=== PATIENT | female | born 1990 | race Caucasian/White ===

== ENCOUNTER 2017-03-01 15:26 | Emergency (ER) | payer OTHER ==
[2017-03-01 19:35] VITALS: BP 114/61
--- NOTE | 2017-03-01 19:51 | UC ---
Hand/Wrist HPI - HPI Summary HPI Summary: Patient was running fell and landed on the back of the left hand, pain in the 4th and 5th metacarpal - History Of Current Complaint Chief Complaint: UCUpperExtremity Stated Complaint: LEFT HAND INJURY PT FELL Time Seen by Provider: 03/01/17 19:39 Hx Obtained From: Patient Hx Last Menstrual Period: 02/22/17 ?: No Onset/Duration: Sudden Onset, Lasting Days Severity Initially: Severe Severity Currently: Moderate Character Of Pain: Throbbing, Spasmodic, Stiffness Aggravating Factor(s): Movement Alleviating Factor(s): Rest, Ice Associated Signs And Symptoms: Positive: Swelling - Allergies/Home Medications Allergies/Adverse Reactions: Allergies Allergy/AdvReac Type Severity Reaction Status Date / Time Cefaclor [From Ceclor] Allergy Intermediate Itching Verified 03/01/17 19:35 Home Medications: Home Medications Acetaminophen [Acetaminophen Extra Stren] 500 mg PO PRN 03/01/17 [History] PMH/Surg Hx/FS Hx/Imm Hx Previously Healthy: Yes - Surgical History Surgical History: Yes Surgery Procedure, Year, and Place: PYLORIC STENOSIS - Family History Known Family History: Positive: None Negative: Cardiac Disease, Hypertension - Social History Alcohol Use: Daily Substance Use Type: None Smoking Status (MU): Light Every Day Tobacco Smoker Type: Cigarettes Amount Used/How Often: 3-4 CIG/DAY Length of Time of Smoking/Using Tobacco: since age 19 Household Exposure Type: Cigarettes Review of Systems Constitutional: Negative Skin: Bruising Eyes: Negative ENT: Negative Respiratory: Negative Cardiovascular: Negative Gastrointestinal: Negative Genitourinary: Negative Motor: Negative Neurovascular: Negative Musculoskeletal: Arthralgia, Decreased ROM, Myalgia Neurological: Negative Psychological: Negative Is Patient Immunocompromised?: No All Other Systems Reviewed And Are Negative: Yes Physical Exam Triage Information Reviewed: Yes Appearance: Well-Appearing, Well-Nourished, Pain Distress Vital Signs: Initial Vital Signs Temp 99 F 03/01/17 19:27 Pulse 101 03/01/17 19:27 Resp 14 03/01/17 19:27 BP 114/61 03/01/17 19:27 Pulse Ox 98 03/01/17 19:27 Vital Signs Reviewed: Yes Eye Exam: Normal ENT Exam: Normal Dental Exam: Normal Neck exam: Normal Respiratory Exam: Normal Cardiovascular Exam: Normal Abdominal Exam: Normal Bowel Sounds: Positive: Present Musculoskeletal: Positive: 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, ROM Limited @ - in 4th finger deformity noted, bruising of the finger and MCP joint, Edema @ - in the 4th finger and hand Neurological Exam: Normal Psychological Exam: Normal Skin Exam: Normal Hand/Wrist Course/Dx - Course Course Of Treatment: hx obtained, exam performed ,meds reviewed, xray obtained, pain meds given, finger reduced, post xray obtained, and referred to ortho, splint applied - Differential Dx/Diagnosis Differential Diagnosis/HQI/PQRI: Contusion, Dislocation, Fracture, Sprain, Strain Provider Diagnoses: dislocation of the left index finger PIP Discharge - Discharge Plan Condition: Stable Disposition: HOME Patient Education Materials: Finger Dislocation (ED) Referrals: Moriah Mosley MD [Primary Care Provider] - Additional Instructions: 1. elevated, Ice and keep the finger splinted, follow up with Dr masters in 1-2 days.
[2017-03-01] MEDS ORDERED: Morphine INJ* 10 MG/ML 1 ML CARPUJECT IM ONE (19:58)
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
[2017-03-01] MEDS ORDERED: Morphine VIAL* 10 MG/ML 1 ML VIAL IM ONE (20:04)
--- NOTE | 2017-03-01 20:50 | RAD ---
HISTORY: Post reduction COMPARISONS: March 01, 2017 at 7:49 PM VIEWS: 3, Frontal, lateral, and oblique views of the fourth digit of the left hand FINDINGS: BONE DENSITY: Normal. BONES: There is a small bone fragment along the volar aspect of the head of the proximal falx of the fifth digit, likely an avulsion fracture from a donor site of the volar plate of the base of the middle phalanx of the fifth digit. JOINTS: There is no arthropathy. ALIGNMENT: There has been interval reduction of the fourth PIP dislocation. SOFT TISSUES: There is soft tissue swelling. OTHER FINDINGS: None. IMPRESSION: INTERVAL REDUCTION OF FOURTH PIP DISLOCATION. THERE IS A SMALL BONE FRAGMENT ALONG THE VOLAR ASPECT OF THE PIP JOINT, LIKELY AN AVULSION FRACTURE FROM THE BASE OF THE MIDDLE PHALANX
== END 2017-03-01 20:51 | disposition home or self-care (01) ==
LOC: UCCORT 15:26
DX: S63.281A Dislocation of proximal interphalangeal joint of left index finger, initial encounter (principal); W18.30XA Fall on same level, unspecified, initial encounter; Y93.02 Activity, running; Y92.9 Unspecified place or not applicable; Z88.1 Allergy status to other antibiotic agents; F17.210 Nicotine dependence, cigarettes, uncomplicated
CPT/HCPCS: 26770; 73140; 96372; 99211; G0463; J2270

== ENCOUNTER 2017-03-09 15:07 | Day surgery (SDC) | payer OTHER ==
[2017-03-09] MEDS ORDERED: fentaNYL* 50 MCG/ML 2 ML VIAL (100 MCG VIAL) ONE (15:14)
[2017-03-09] MEDS ORDERED: Midazolam* 1 MG/ML 2 ML VIAL (2 MG) ONE (15:14)
[2017-03-09] MEDS ORDERED: Propofol* 10 MG/ML 20 ML BTL IV PUSH ONE ×2 (16:43→17:41)
[2017-03-09] MEDS ORDERED: Naloxone* 0.4 MG/ML 1 ML VIAL IV PRN (17:25)
[2017-03-09] MEDS ORDERED: HYDROmorphone INJ* 1 MG/ML CARPUJECT SYRINGE IV PRN (17:25)
[2017-03-09] MEDS ORDERED: Ondansetron INJ* 2 MG/ML VIAL IV PRN (17:25)
[2017-03-09] MEDS ORDERED: oxyCODONE/Acetamin 5/325 MG* TAB PO PRN (17:25)
[2017-03-09 19:21] VITALS: BP 104/62
--- NOTE | 2017-03-10 08:48 | RAD ---
CPT II Codes: 6045F INDICATION: Avulsion fracture at the proximal interphalangeal joint of the left ring finger TECHNIQUE: Intraoperative fluoroscopy was provided during ORIF. FINDINGS: 3 spot films depict lateral view fluoroscopic images of the left ring finger with a surgical tack overlying the anterior proximal corner of the middle phalanx. Fluoroscopy time: 23 seconds IMPRESSION: As above.
--- NOTE | 2017-03-10 16:32 | OP ---
DATE OF OPERATION: 03/09/17 - [facility] DATE OF : 88 SURGEON: Kendall Murphy MD. NON GARMENT SEWING MACHINE OPERATOR: BECCA Calles. An pharmacy affairs assistant was needed to aid in positioning of the arm and retraction. ANESTHESIOLOGIST: Dr. Bryant. ANESTHESIA: Local MAC. PRE-OP DIAGNOSIS: Left ring finger displaced proximal interphalangeal joint fracture, dislocation. POST-OP DIAGNOSIS: Left ring finger displaced proximal interphalangeal joint fracture, dislocation. OPERATIVE PROCEDURE: Open repair of left ring finger, displaced proximal to phalangeal joint fracture, intraarticular fracture dislocation. INDICATIONS: Leilani had a dorsal fracture dislocation of the ring finger PIP joint. It was very displaced. I had talked to her about closed treatment versus going ahead and then trying to open reduce the fragment and flip the volar plate back into place. I thought that given the degree of displacement, I thought the risk of a swan neck deformity was quite large. Given that the volar plate looked like it was inverted back on itself, based on the preoperative imaging. She certainly understands the risks of stiffness in the joint and risk of prolonged swelling. She wanted to proceed. ESTIMATED BLOOD LOSS: 2 mL. COMPLICATIONS: None. FINDINGS: As expected. The volar plate was indeed flipped back on to itself. DESCRIPTION OF PROCEDURE: Leilani was seen in the preoperative holding area. The correct site, side, and procedure were identified. We came back to the operating room and the arm was prepped and draped in the usual fashion. A time- out was performed. I performed a digital block with 0.25% plain Marcaine. I then made an incision over the volar aspect of the finger that was brought longitudinally across the PIP joint along the ulnar mid axial line. The flap was retracted radially. This was raised right off the tendon sheath. I then opened the A3 jami longitudinally on its ulnar margin. I did this just enough to get a Ragnell retractor under both tendons and retract them. I irrigated out the fracture hematoma and debrided back the soft tissue with pickups. The volar plate was seen; it was indeed inverted, and the fracture fragment was abutting the distal aspect of the proximal phalanx. I went ahead and reduced the volar plate. I then placed 1 micro Mitek suture anchor, right in the middle of the fracture bed. I placed 1 horizontal mattress suture into the volar plate, holding the fracture fragments more apposed. Certainly they were much more apposed and in a nice position. At this point, with the suture fixation intact everything was looking good. I extended the finger and came out to full extension and flexed it down. The volar plate stayed in a very nice position. I therefore irrigated out the wound. The skin was closed with 4-0 nylon suture. The wound was dressed with Xeroform, 1-inch Nadir and Alumafoam clamshell splint was placed, holding the PIP joint in full extension. This was secured with Coban and some tape. The tourniquet was deflated and she was taken to the recovery room in stable condition. [id number]/CPS #: [id number] ABIMAEL
== END 2017-03-09 18:50 | disposition home or self-care (01) ==
LOC: OR 15:07
PROVIDERS: ATTEND Orthopaedic Surgery Hand Surgery
DX: S62.615A Displaced fracture of proximal phalanx of left ring finger, initial encounter for closed fracture (principal); F17.210 Nicotine dependence, cigarettes, uncomplicated; W18.39XA Other fall on same level, initial encounter; Y92.410 Unspecified street and highway as the place of occurrence of the external cause; K21.9 Gastro-esophageal reflux disease without esophagitis; F41.8 Other specified anxiety disorders
CPT/HCPCS: 76000; 81025; J2250; J2704; J3010

== ENCOUNTER 2017-04-04 21:27 | Emergency (ER) | payer SELFPAY ==
[2017-04-04] MEDS ORDERED: Amoxicillin/Clavulanate TAB* 875 MG PO ONE ×2 (21:39→21:40)
[2017-04-04 21:46] VITALS: BP 126/78
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
== END 2017-04-04 22:00 | disposition home or self-care (01) ==
LOC: UCEAST 21:27
DX: S02.92XD Unspecified fracture of facial bones, subsequent encounter for fracture with routine healing (principal); V89.2XXD Person injured in unspecified motor-vehicle accident, traffic, subsequent encounter; R20.0 Anesthesia of skin; Z88.1 Allergy status to other antibiotic agents; F17.210 Nicotine dependence, cigarettes, uncomplicated
CPT/HCPCS: 99202; A9270-GY; G0463

== ENCOUNTER 2017-05-30 15:58 | Emergency (ER) | payer OTHER ==
[2017-05-30] MEDS ORDERED: LORazepam INJ* 2 MG/ML 1 ML VIAL IV ONE (16:26)
[2017-05-30 16:50] LABS: ABS Basophils 0.1 10^3/ul (0-0.2); ABS Eosinophils 0.6 10^3/ul (0-0.6); ABS Lymphocytes 1.1 10^3/ul (1.0-4.8); ABS Monocytes 0.7 10^3/ul (0-0.8); ABS Neutrophils 7.3 10^3/ul (1.5-7.7); ABS Nucleated RBC 0 10^3/ul; Eosinophil % 6.3 % (0-6); Hematocrit 45 % (35-47); Hemoglobin 15.4 g/dl (12.0-16.0); Lymphocyte % 10.8 % (25-47); Mean Corpuscular HGB Conc 34 g/dl (31-36); Mean Corpuscular Hemoglobin 32 pg (27-31); Mean Corpuscular Volume 92 fL (80-97); Mean Platelet Volume 8.4 um3 (7.4-10.4); Nucleated Red Blood Cells % 0; Platelet Count 219 10^3/ul (150-450); Red Cell Distribution Width 13 % (10.5-15); White Blood Count 9.7 10^3/ul (3.5-10.8)
[2017-05-30 17:07] LABS: EGFR Non-African American 94.1 (>60)
--- NOTE | 2017-05-30 17:08 | RAD ---
Indication: Headaches. CT of the brain was performed without IV contrast. Comparison is made with previous exam dated October 05, 2006. Ventricular structures are midline. No midline shift is noted. The extra-axial spaces are unremarkable. There is no evidence of mass or hemorrhage. No other high or low density lesions are identified. Mastoid air cells and paranasal sinuses are clear. IMPRESSION: No intracranial mass or hemorrhage is noted.
[2017-05-30 19:29] LABS: Urine Appearance Clear; Urine Blood Negative (Negative); Urine Color Yellow; Urine Ketones Negative (Negative); Urine Protein Negative (Negative); Urine Specific Gravity 1.014 (1.010-1.030); Urine Urobilinogen Negative (Negative)
[2017-05-30 19:45] VITALS: BP 00/00
--- NOTE | 2017-05-30 20:04 | ED ---
Arturo Mchugh Thomas, scribed for Andre Germain MD on 05/30/17 at 1652 . Headache - HPI Summary HPI Summary: The patient is a 26 year old female presenting with a sudden-onset severe headache that began two minutes after injecting methamphetamine at about 15:50. She complains of bilateral hand numbness, lip tingling, and mouth numbness. She is tearful. This was her first time injecting meth, although she admits to injecting heroin previously. - History Of Current Complaint Chief Complaint: EDSubstanceAbuse Stated Complaint: DRUG INTAKE Time Seen by Provider: 05/30/17 16:18 Hx Obtained From: Patient Hx Last Menstrual Period: 02/22/17 Onset/Duration: Sudden Onset, Started minutes ago, Still Present Currently Pain Is: Severe Timing: Constant Aggravating Factor: Other - Methanmphetamine Allevating Factors: Nothing Associated Signs And Symptoms: Other (Noted In Comments) - Bilateral hand and mouth numbness, lip tingling - Allergies/Home Medications Allergies/Adverse Reactions: Allergies Allergy/AdvReac Type Severity Reaction Status Date / Time cefaclor [From Ceclor] Allergy Itching Verified 05/30/17 16:18 PMH/Surg Hx/FS Hx/Imm Hx Cardiovascular History: Denies: Hx Congestive Heart Failure Opthamlomology History: Denies: Hx Legally Blind Psychiatric History: Reports: Hx Substance Abuse - Surgical History Surgery Procedure, Year, and Place: PYLORIC STENOSIS Infectious Disease History: Yes Infectious Disease History: Denies: Traveled Outside the [place] in Last 30 Days - Family History Known Family History: Negative: Cardiac Disease, Hypertension - Social History Alcohol Use: Daily Substance Use Type: Reports: Heroin, Other Substance Use Comment - Amount & Last Used: methamphetamines Smoking Status (MU): Light Every Day Tobacco Smoker Type: Cigarettes Amount Used/How Often: 3-4 CIG/DAY Length of Time of Smoking/Using Tobacco: since age 19 Review of Systems Negative: Fever Neurological: Other - Lip tingling Positive: Headache, Numbness - bilateral hands, mouth All Other Systems Reviewed And Are Negative: Yes Physical Exam - Summary Physical Exam Summary: Appearance: The patient is well-nourished in no acute distress and in no acute pain. Skin: The skin is warm and dry and skin color reflects adequate perfusion. She has multiple clean injection wiseman on her left volar forearm. HEENT: The head is normocephalic and atraumatic. The pupils are equal and reactive. The conjunctivae are clear and without drainage. The fundi are crisp. Nares are patent and without drainage. Mouth reveals moist mucous membranes and the throat is without erythema and exudate. The external ears are intact. The ear canals are patent and without drainage. The tympanic membranes are intact. Neck: the neck is supple with full range of motion and non-tender. There are no carotid bruits. There is no neck vein distension. Respiratory: Chest is non-tender. Lungs are clear to auscultation and breath sounds are symmetrical and equal. Cardiovascular: Heart is regular rate and rhythm. There is no murmur or rub auscultated. There is no peripheral edema and pulses are symmetrical and equal. Abdomen: The abdomen is soft and non-tender. There are normal bowel sounds heard in all four quadrants and there is no organomegaly palpated. Musculoskeletal: There is no back tenderness noted. Extremities are non-tender with full range of motion. There is good capillary refill. There is no peripheral edema or calf tenderness elicited. Neurological: Patient is alert and oriented to person, place and time. The patient has symmetrical motor strength in all four extremities. Cranial nerves are grossly intact. Deep tendon reflexes are symmetrical and equal in all four extremities. She is not hyperreflexic. She has no meningeal signs. Psychiatric: The patient has an appropriate affect and does not exhibit any anxiety or depression. Triage Information Reviewed: Yes Vital Signs On Initial Exam: Initial Vitals Temp Pulse Resp BP Pulse Ox 97.3 F 135 22 154/119 100 05/30/17 16:04 05/30/17 16:04 05/30/17 16:04 05/30/17 16:04 05/30/17 16:04 Vital Signs Reviewed: Yes Diagnostics - Vital Signs Vital Signs Temp Pulse Resp BP Pulse Ox 05/30/17 16:39 18 05/30/17 16:25 100 05/30/17 16:23 86 21 141/81 100 05/30/17 16:15 79 21 161/89 100 05/30/17 16:14 72 27 99 05/30/17 16:04 97.3 F 135 22 154/119 100 - Laboratory Lab Results: Lab Results 04/21/18 04/21/18 04/21/18 Range/Units 16:40 16:40 16:40 WBC 9.7 (3.5-10.8) 10^3/ul RBC 4.90 (4.0-5.4) 10^6/ul Hgb 15.4 (12.0-16.0) g/dl Hct 45 (35-47) % MCV 92 (80-97) fL MCH 32 H (27-31) pg MCHC 34 (31-36) g/dl RDW 13 (10.5-15) % Plt Count 219 (150-450) 10^3/ul MPV 8.4 (7.4-10.4) um3 Neut % (Auto) 75.3 (38-83) % Lymph % (Auto) 10.8 L (25-47) % Collier % (Auto) 7.0 (0-7) % Eos % (Auto) 6.3 H (0-6) % Baso % (Auto) 0.6 (0-2) % Absolute Neuts (auto) 7.3 (1.5-7.7) 10^3/ul Absolute Lymphs (auto) 1.1 (1.0-4.8) 10^3/ul Absolute Monos (auto) 0.7 (0-0.8) 10^3/ul Absolute Eos (auto) 0.6 (0-0.6) 10^3/ul Absolute Basos (auto) 0.1 (0-0.2) 10^3/ul Absolute Nucleated RBC 0 10^3/ul Nucleated RBC % 0 Sodium 141 (139-145) mmol/L Potassium 3.3 L (3.5-5.0) mmol/L Chloride 104 (101-111) mmol/L Carbon Dioxide 23 (22-32) mmol/L Anion Gap 14 H (2-11) mmol/L BUN 11 (6-24) mg/dL Creatinine 0.74 (0.51-0.95) mg/dL Est GFR ( Amer) 121.1 (>60) Est GFR (Non-Af Amer) 94.1 (>60) BUN/Creatinine Ratio 14.9 (8-20) Glucose 123 H (70-100) mg/dL Lactic Acid 1.4 (0.5-2.0) mmol/L Calcium 10.0 (8.6-10.3) mg/dL Total Bilirubin 0.60 (0.2-1.0) mg/dL AST 17 (13-39) U/L ALT 11 (7-52) U/L Alkaline Phosphatase 72 (34-104) U/L Total Protein 7.5 (6.4-8.9) g/dL Albumin 4.4 (3.2-5.2) g/dL Globulin 3.1 (2-4) g/dL Albumin/Globulin Ratio 1.4 (1-3) TSH 1.07 (0.34-5.60) mcIU/mL Beta HCG, Quant < 0.60 mIU/mL Urine Color Urine Appearance Urine pH (5-9) Ur Specific Midland (1.010-1.030) Urine Protein (Negative) Urine Ketones (Negative) Urine Blood (Negative) Urine Nitrate (Negative) Urine Bilirubin (Negative) Urine Urobilinogen (Negative) Ur Leukocyte Esterase (Negative) Urine Glucose (Negative) Salicylates < 2.50 (<30) mg/dL Urine Opiates Screen (None Detect) Acetaminophen < 15 mcg/mL Ur Barbiturates Screen (None Detect) Ur Phencyclidine Scrn (None Detect) Ur Amphetamines Screen (None Detect) U Benzodiazepines Scrn (None Detect) Urine Cocaine Screen (None Detect) U Cannabinoids Screen (None Detect) Serum Alcohol < 10 (<10) mg/dL 05/30/17 05/30/17 Range/Units 19:01 19:10 WBC (3.5-10.8) 10^3/ul RBC (4.0-5.4) 10^6/ul Hgb (12.0-16.0) g/dl Hct (35-47) % MCV (80-97) fL MCH (27-31) pg MCHC (31-36) g/dl RDW (10.5-15) % Plt Count (150-450) 10^3/ul MPV (7.4-10.4) um3 Neut % (Auto) (38-83) % Lymph % (Auto) (25-47) % Collier % (Auto) (0-7) % Eos % (Auto) (0-6) % Baso % (Auto) (0-2) % Absolute Neuts (auto) (1.5-7.7) 10^3/ul Absolute Lymphs (auto) (1.0-4.8) 10^3/ul Absolute Monos (auto) (0-0.8) 10^3/ul Absolute Eos (auto) (0-0.6) 10^3/ul Absolute Basos (auto) (0-0.2) 10^3/ul Absolute Nucleated RBC 10^3/ul Nucleated RBC % Sodium (139-145) mmol/L Potassium (3.5-5.0) mmol/L Chloride (101-111) mmol/L Carbon Dioxide (22-32) mmol/L Anion Gap (2-11) mmol/L BUN (6-24) mg/dL Creatinine (0.51-0.95) mg/dL Est GFR ( Amer) (>60) Est GFR (Non-Af Amer) (>60) BUN/Creatinine Ratio (8-20) Glucose (70-100) mg/dL Lactic Acid (0.5-2.0) mmol/L Calcium (8.6-10.3) mg/dL Total Bilirubin (0.2-1.0) mg/dL AST (13-39) U/L ALT (7-52) U/L Alkaline Phosphatase (34-104) U/L Total Protein (6.4-8.9) g/dL Albumin (3.2-5.2) g/dL Globulin (2-4) g/dL Albumin/Globulin Ratio (1-3) TSH (0.34-5.60) mcIU/mL Beta HCG, Quant mIU/mL Urine Color Yellow Urine Appearance Clear Urine pH 7.0 (5-9) Ur Specific [place] 1.014 (1.010-1.030) Urine Protein Negative (Negative) Urine Ketones Negative (Negative) Urine Blood Negative (Negative) Urine Nitrate Negative (Negative) Urine Bilirubin Negative (Negative) Urine Urobilinogen Negative (Negative) Ur Leukocyte Esterase Negative (Negative) Urine Glucose Negative (Negative) Salicylates (<30) mg/dL Urine Opiates Screen Presumptive positive A (None Detect) Acetaminophen mcg/mL Ur Barbiturates Screen None detected (None Detect) Ur Phencyclidine Scrn None detected (None Detect) Ur Amphetamines Screen Presumptive positive A (None Detect) U Benzodiazepines Scrn None detected (None Detect) Urine Cocaine Screen Presumptive positive A (None Detect) U Cannabinoids Screen None detected (None Detect) Serum Alcohol (<10) mg/dL Result Diagrams: 05/30/17 16:40 05/30/17 16:40 Lab Statement: Any lab studies that have been ordered have been reviewed, and results considered in the medical decision making process. - CT CT Brain CT Interpretation: No Acute Changes - Impression: No intracranial mass or hemorrhage is noted. Dr. Germain has reviewed this report. CT Interpretation Completed By: Radiologist - EKG 16:32 Cardiac Rate: NL EKG Rhythm: Sinus Rhythm - at 69 BPM EKG Interpretation: Possible RVH. Re-Evaluation - Re-Evaluation First Eval Re-Evaluation Time: 17:43 Change: Improved Comment: Her headache is much improved. Second Eval Re-Evaluation Time: 19:27 Comment: Patient will be discharged. Follow up at [facility] was discussed. Headache Course/Dx - Course Course Of Treatment: Ms. Tamayo improved and her PHAM resolved after some time and some Ativan. She is a polysubstance user and is most concerned about using heroin which she has used for about a year and by injection for about a month. She has an appointment at [facility] for Thursday but has missed 4 appointments already. I encouraged her to keep that appointment and she indicated that she would. - Diagnoses Provider Diagnoses: Overdose Discharge - Sign-Out/Discharge Documenting (check all that apply): Discharge - Discharge Plan Condition: Stable Disposition: HOME Prescriptions: Buprenorphine HCl/Naloxone HCl [Suboxone 8 mg-2 mg Sl Film] 1 each SL QAM #4 film MDD 1 Patient Education Materials: Narcotic Abuse (ED), Methamphetamine Abuse (ED) Referrals: [facility],. [Z.BUSINESS, APPLICATION, OTHER] - 06/03/17 Additional Instructions: Follow up at [facility] on 06/03/17 at 10:40am. Return to the emergency department for new or worsening symptoms. - Billing Disposition and Condition Condition: STABLE Disposition: HOME The documentation as recorded by the Arturo martinez Thomas accurately reflects the service I personally performed and the decisions made by me, Andre Germain MD.
== END 2017-05-30 19:48 | disposition home or self-care (01) ==
LOC: ED 15:58
DX: T43.621A Poisoning by amphetamines, accidental (unintentional), initial encounter (principal); R51 Headache; R20.0 Anesthesia of skin; R20.2 Paresthesia of skin; Y92.9 Unspecified place or not applicable; Z32.02 Encounter for pregnancy test, result negative; Z88.1 Allergy status to other antibiotic agents; F17.210 Nicotine dependence, cigarettes, uncomplicated
CPT/HCPCS: 36415; 70450; 80053; 80307; 80320; 80329; 81003; 83605; 84443; 84702; 85025; 93005; 96374; 99284; G0480; J2060

== ENCOUNTER 2017-11-17 19:08 | Emergency (ER) | payer OTHER ==
[2017-11-17] MEDS ORDERED: NS 0.9% 1000 ML* 1,000 ML IV ONE ×2 (19:23→20:26)
--- NOTE | 2017-11-17 19:23 | ED ---
Substance Abuse/Use - HPI Summary HPI Summary: A 27 y/o female BIBA and police agitated in handcuffs presents to [facility] with AMS , possible OD earlier today. The pt has a Hx of heroin and methamphetaminesabuse. EMS was called by a friend. She is awake but fidgets in her bed. She was given Haldol and Ativan. She is tachycardic on the heart monitor. After sedation the patient is responsive to touch. Patient is a level 5 caveat due to her AMS. - History Of Current Complaint Stated Complaint: POSS OVERDOSE Hx Obtained From: Patient, EMS Hx From Patient Unobtainable Due To: Altered Mental Status Hx Last Menstrual Period: 02/22/17 Ingestion History: Type/Name Of Drug - Heroin Severity Initially: Moderate Severity Currently: Moderate Aggravating Factor(s): Other - drug use - Allergies/Home Medications Allergies/Adverse Reactions: Allergies Allergy/AdvReac Type Severity Reaction Status Date / Time cefaclor [From Ceclor] Allergy Itching Verified 05/30/17 16:18 PMH/Surg Hx/FS Hx/Imm Hx Cardiovascular History: Denies: Hx Congestive Heart Failure Sensory History: Denies: Hx Legally Blind Opthamlomology History: Denies: Hx Legally Blind Psychiatric History: Reports: Hx Substance Abuse - Surgical History Surgery Procedure, Year, and Place: PYLORIC STENOSIS - Family History Known Family History: Negative: Cardiac Disease, Hypertension - Social History Alcohol Use: Daily Substance Use Type: Reports: Heroin, Other Substance Use Comment - Amount & Last Used: methamphetamines Smoking Status (MU): Light Every Day Tobacco Smoker Type: Cigarettes Amount Used/How Often: 3-4 CIG/DAY Length of Time of Smoking/Using Tobacco: since age 19 Review of Systems Negative: Fever All Other Systems Reviewed And Are Negative: No Physical Exam - Summary Physical Exam Summary: VITAL SIGNS: Reviewed. GENERAL: Patient is a well-developed and nourished FEMALE who is lying comfortable in the stretcher. Patient is not in any acute respiratory distress. HEAD AND FACE: No signs of trauma. No ecchymosis, hematomas or skull depressions. No sinus tenderness. EYES: PERRLA, EOMI x 2, No injected conjunctiva, no nystagmus. EARS: Hearing grossly intact. Ear canals and tympanic membranes are within normal limits. MOUTH: Oropharynx within normal limits. NECK: Supple, trachea is midline, no adenopathy, no JVD, no carotid bruit, no c- spine tenderness, neck with full ROM. CHEST: Symmetric, no tenderness at palpation LUNGS: Clear to auscultation bilaterally. No wheezing or crackles. CVS: Regular rate and rhythm, S1 and S2 present, no murmurs or gallops appreciated. ABDOMEN: Soft, non-tender. No signs of distention. No rebound no guarding, and no masses palpated. Bowel sounds are normal. EXTREMITIES: FROM in all major joints, no edema, no cyanosis or clubbing. NEURO: Alert and oriented x 3. No acute neurological deficits. Speech is normal and follows commands. SKIN: Dry and warm Psych: Agitated, handcuffed and talking nonsense. Triage Information Reviewed: Yes Vital Signs Reviewed: Yes Diagnostics - Laboratory Result Diagrams: 11/17/17 20:04 11/17/17 20:04 Lab Statement: Any lab studies that have been ordered have been reviewed, and results considered in the medical decision making process. - EKG 19:45 Cardiac Rate: Tachycardia - 144 bpm EKG Rhythm: Sinus Tachycardia ST Segment: Normal EKG Interpretation: Normal axis. Normal interval. No ischemic changes Re-Evaluation - Re-Evaluation First Eval Re-Evaluation Time: 02:00 Change: Improved Comment: Alert and oriented. Feeling OK, ready to go home. Course/Dx - Course Course Of Treatment: A 27 y/o female BIBA and police agitated in handcuffs presents to [facility] with AMS, possible OD earlier today. The pt has a Hx of heroin and methamphetaminesabuse. EMS was called by a friend. She is awake but fidgets in her bed. She was given Haldol and Ativan. She is tachycardic on the heart monitor. After sedation the patient is responsive to touch. Patient is a level 5 caveat due to her AMS. She was tachycardic at 144 bpm. Final diagnosis is substance abuse. She will be discharged home. Patient is agreeable with this plan. - Diagnoses Provider Diagnoses: Substance abuse Discharge - Sign-Out/Discharge Documenting (check all that apply): Patient Departure - DC - Discharge Plan Condition: Stable Disposition: HOME Patient Education Materials: Narcotic Abuse (ED) Referrals: Romina Villalba NP [Primary Care Provider] - (2-3 days) Additional Instructions: RETURN TO THE EMERGENCY DEPARTMENT FOR CHANGING OR WORSENING SYMPTOMS. FOLLOW UP WITH PCP IN 1-2 DAYS. - Attestation Statements Document Initiated by Scribe: Yes Documenting Scribe: Oliverio Romero Provider For Whom Scribe is Documenting (Include Credential): Cody Lyle MD Scribe Attestation: IOliverio, scribed for Cody Lyle MD on 11/18/17 at 0323.
[2017-11-17] MEDS ORDERED: LORazepam INJ* 2 MG/ML 1 ML VIAL IM ONE (19:25)
[2017-11-17] MEDS ORDERED: Haloperidol INJ IV/IM* 5 MG/ML AMP IM ONE (19:25)
[2017-11-17 20:15] LABS: ABS Basophils 0.1 10^3/ul (0-0.2); ABS Eosinophils 0.1 10^3/ul (0-0.6); ABS Lymphocytes 1.2 10^3/ul (1.0-4.8); ABS Monocytes 0.6 10^3/ul (0-0.8); ABS Neutrophils 16.7 10^3/ul (1.5-7.7); ABS Nucleated RBC 0 10^3/ul; Eosinophil % 0.6 % (0-6); Hematocrit 41 % (35-47); Hemoglobin 14.1 g/dl (12.0-16.0); Lymphocyte % 6.2 % (25-47); Mean Corpuscular HGB Conc 35 g/dl (31-36); Mean Corpuscular Hemoglobin 31 pg (27-31); Mean Corpuscular Volume 90 fL (80-97); Mean Platelet Volume 7.5 um3 (7.4-10.4); Nucleated Red Blood Cells % 0.1; Platelet Count 369 10^3/ul (150-450); Red Blood Count 4.55 10^6/ul (4.00-5.40); Red Cell Distribution Width 14 % (10.5-15); White Blood Count 18.7 10^3/ul (3.5-10.8)
[2017-11-18 01:21] LABS: Urine Appearance Cloudy; Urine Blood Negative (Negative); Urine Color Yellow; Urine Ketones Negative (Negative); Urine Protein Negative (Negative); Urine Red Blood Cell Trace(0-2/hpf) (Absent); Urine Specific Gravity 1.013 (1.010-1.030); Urine Urobilinogen Negative (Negative); Urine White Blood Cell Trace(0-5/hpf) (Absent)
[2017-11-18 03:03] VITALS: BP 107/71
== END 2017-11-18 03:11 | disposition home or self-care (01) ==
LOC: ED 19:08
DX: F19.10 Other psychoactive substance abuse, uncomplicated (principal); R00.0 Tachycardia, unspecified; F17.210 Nicotine dependence, cigarettes, uncomplicated; Z88.3 Allergy status to other anti-infective agents
CPT/HCPCS: 36415; 80053; 80307; 80320; 80329; 81003; 81015; 82550; 84443; 84702; 85025; 87077; 87086; 87186; 93005; 99284; G0480; J1630; J2060

== ENCOUNTER 2017-12-01 22:54 | Emergency (ER) | payer OTHER ==
[2017-12-01] MEDS ORDERED: KETAMINE HCL* 50 MG/ML 10 ML VIAL ONE (23:00)
[2017-12-01] MEDS ORDERED: KETAMINE HCL* 50 MG/ML 10 ML VIAL IM ONE (23:04)
[2017-12-01] MEDS ORDERED: NS 0.9% 1000 ML* 2,000 ML IV ONE (23:04)
--- NOTE | 2017-12-01 23:04 | ED ---
Altered Mental Status - History Of Current Complaint Stated Complaint: 22.09 Hx Last Menstrual Period: 02/22/17 - Allergies/Home Medications Allergies/Adverse Reactions: Allergies Allergy/AdvReac Type Severity Reaction Status Date / Time cefaclor [From Ceclor] Allergy Itching Verified 05/30/17 16:18 PMH/Surg Hx/FS Hx/Imm Hx Cardiovascular History: Denies: Hx Congestive Heart Failure Sensory History: Denies: Hx Legally Blind Opthamlomology History: Denies: Hx Legally Blind Psychiatric History: Reports: Hx Substance Abuse - Surgical History Surgery Procedure, Year, and Place: PYLORIC STENOSIS - Family History Known Family History: Positive: None Negative: Cardiac Disease, Hypertension - Social History Alcohol Use: Daily Substance Use Type: Reports: Heroin, Other Substance Use Comment - Amount & Last Used: methamphetamines Smoking Status (MU): Light Every Day Tobacco Smoker Type: Cigarettes Amount Used/How Often: 3-4 CIG/DAY Length of Time of Smoking/Using Tobacco: since age 19 Discharge - Discharge Plan Referrals: Romina Villalba NP [Primary Care Provider] - - Attestation Statements Document Initiated by Scribe: Yes Documenting Scribe: Piper Saez Provider For Whom Scribe is Documenting (Include Credential): Dr. Andre Guerrier MD Scribe Attestation: Piper Mchugh scribed for Dr. Andre Guerrier MD on 12/01/17 at 2304.
[2017-12-01] MEDS ORDERED: Haloperidol INJ IV/IM* 5 MG/ML AMP IM ONE (23:45)
[2017-12-02 00:50] LABS: ABS Basophils 0 10^3/ul (0-0.2); ABS Eosinophils 0 10^3/ul (0-0.6); ABS Lymphocytes 1.1 10^3/ul (1.0-4.8); ABS Monocytes 0.7 10^3/ul (0-0.8); ABS Neutrophils 7.5 10^3/ul (1.5-7.7); ABS Nucleated RBC 0 10^3/ul; Eosinophil % 0.5 % (0-6); Hematocrit 44 % (35-47); Hemoglobin 15.1 g/dl (12.0-16.0); Lymphocyte % 11.6 % (25-47); Mean Corpuscular HGB Conc 35 g/dl (31-36); Mean Corpuscular Hemoglobin 31 pg (27-31); Mean Corpuscular Volume 90 fL (80-97); Mean Platelet Volume 8.3 um3 (7.4-10.4); Nucleated Red Blood Cells % 0; Platelet Count 233 10^3/ul (150-450); Red Blood Count 4.84 10^6/ul (4.00-5.40); Red Cell Distribution Width 15 % (10.5-15); White Blood Count 9.4 10^3/ul (3.5-10.8)
[2017-12-02 01:07] LABS: EGFR Non-African American 93.5 (>60)
--- NOTE | 2017-12-02 02:53 | ED ---
Substance Abuse/Use - HPI Summary HPI Summary: Level 5 caveat : Unable to obtain complete HPI due to AMS The pt is a 27 y/o female accompanied by police BIBA to [facility] c/o of altered mental status since 2209hrs on 12/01/2017. As per EMS, the pt was found with an unknown substance. She arrives in handcuffs and is not communicative. - History Of Current Complaint Chief Complaint: EDSubstanceAbuse Stated Complaint: 22.09 Time Seen by Provider: 12/01/17 23:03 Hx Obtained From: Patient, EMS, Other: - [place] [employer] Hx From Patient Unobtainable Due To: Altered Mental Status Hx Last Menstrual Period: 02/22/17 Associated Signs And Symptoms: Altered Mental Status - Allergies/Home Medications Allergies/Adverse Reactions: Allergies Allergy/AdvReac Type Severity Reaction Status Date / Time cefaclor [From Ceclor] Allergy Itching Verified 05/30/17 16:18 PMH/Surg Hx/FS Hx/Imm Hx Previously Healthy: No - Level 5 caveat : Unable to obtain complete PMHx due to AMS Cardiovascular History: Denies: Hx Congestive Heart Failure Sensory History: Denies: Hx Legally Blind, Hx Deafness Opthamlomology History: Denies: Hx Legally Blind Psychiatric History: Reports: Hx Substance Abuse - Cancer History Cancer Type, Location and Year: None reported - Surgical History Surgery Procedure, Year, and Place: PYLORIC STENOSIS Infectious Disease History: No Infectious Disease History: Denies: Traveled Outside the [place] in Last 30 Days - Family History Known Family History: Negative: Cardiac Disease, Hypertension - Social History Occupation: Student Alcohol Use: Daily Substance Use Type: Reports: Heroin, Other Substance Use Comment - Amount & Last Used: methamphetamines Smoking Status (MU): Light Every Day Tobacco Smoker Type: Cigarettes Amount Used/How Often: 3-4 CIG/DAY Length of Time of Smoking/Using Tobacco: since age 19 Review of Systems - ROS Summary Review of Systems Summary: Level 5 caveat : Unable to obtain complete ROS due to AMS Constitutional: Other - Positive: AMS Negative: Fever All Other Systems Reviewed And Are Negative: No Physical Exam - Summary Physical Exam Summary: Level 5 caveat : Unable to obtain complete PE due to AMS Appearance: The patient makes eye contact but is not verbal; She is fidgety with smirking present Skin: Warm, dry, no obvious rash Eyes: sclera anicteric, no conjunctival pallor; Pupils are normal and reactive ; Not pinpoint ENT: mucous membranes moist, pharynx appears normal Neck: Supple, nontender Respiratory: Clear to auscultation, no signs of respiratory distress Cardiovascular: Normal S1, S2. No murmurs. Normal distal pulses in tibial and radial bilaterally. Abdomen: Soft, nontender, normal active bowel sounds present Musculoskeletal: Normal, Strength/ROM Intact Neurological: A&Ox3, awake and alert, mentation is normal, speech is fluent and appropriate Psychiatric: affect is normal, does not appear anxious or depressed Triage Information Reviewed: Yes Vital Signs On Initial Exam: Initial Vitals BP 146/87 12/01/17 23:09 Vital Signs Reviewed: Yes Completion Of Physical Exam Limited Due To: Altered Mental Status Diagnostics - Vital Signs Vital Signs Temp Pulse Resp BP Pulse Ox 12/02/17 02:10 108 23 113/78 98 12/02/17 02:00 106 28 100 12/02/17 01:40 104 19 119/80 98 12/02/17 01:00 98 19 98 12/02/17 00:18 109 15 99 12/02/17 00:10 112 27 131/90 98 12/02/17 00:00 119 23 97 12/01/17 23:39 118 29 146/84 12/01/17 23:23 98.9 F 143 30 146/87 100 12/01/17 23:10 143 100 12/01/17 23:09 146/87 - Laboratory Lab Results: Lab Results 12/02/17 12/02/17 12/02/17 Range/Units 00:25 00:25 00:25 WBC 9.4 (3.5-10.8) 10^3/ul RBC 4.84 (4.00-5.40) 10^6/ul Hgb 15.1 (12.0-16.0) g/dl Hct 44 (35-47) % MCV 90 (80-97) fL MCH 31 (27-31) pg MCHC 35 (31-36) g/dl RDW 15 (10.5-15) % Plt Count 233 (150-450) 10^3/ul MPV 8.3 (7.4-10.4) um3 Neut % (Auto) 79.7 (38-83) % Lymph % (Auto) 11.6 L (25-47) % Island % (Auto) 7.8 H (0-7) % Eos % (Auto) 0.5 (0-6) % Baso % (Auto) 0.4 (0-2) % Absolute Neuts (auto) 7.5 (1.5-7.7) 10^3/ul Absolute Lymphs (auto) 1.1 (1.0-4.8) 10^3/ul Absolute Monos (auto) 0.7 (0-0.8) 10^3/ul Absolute Eos (auto) 0 (0-0.6) 10^3/ul Absolute Basos (auto) 0 (0-0.2) 10^3/ul Absolute Nucleated RBC 0 10^3/ul Nucleated RBC % 0 Sodium 140 (135-145) mmol/L Potassium 3.8 (3.5-5.0) mmol/L Chloride 107 (101-111) mmol/L Carbon Dioxide 23 (22-32) mmol/L Anion Gap 10 (2-11) mmol/L BUN 23 (6-24) mg/dL Creatinine 0.74 (0.51-0.95) mg/dL Est GFR ( Amer) 113.1 (>60) Est GFR (Non-Af Amer) 93.5 (>60) BUN/Creatinine Ratio 31.1 H (8-20) Glucose 100 (70-100) mg/dL Lactic Acid 0.7 (0.5-2.0) mmol/L Calcium 10.0 (8.6-10.3) mg/dL Total Bilirubin 0.40 (0.2-1.0) mg/dL AST 19 (13-39) U/L ALT 17 (7-52) U/L Alkaline Phosphatase 100 (34-104) U/L Total Protein 8.1 (6.4-8.9) g/dL Albumin 5.0 (3.2-5.2) g/dL Globulin 3.1 (2-4) g/dL Albumin/Globulin Ratio 1.6 (1-3) Serum Alcohol < 10 (<10) mg/dL Result Diagrams: 12/02/17 00:25 12/02/17 00:25 Lab Statement: Any lab studies that have been ordered have been reviewed, and results considered in the medical decision making process. - EKG 01:16 Cardiac Rate: NL - 94 bpm EKG Rhythm: Sinus Rhythm Summary of EKG Findings: P waves, QRS complex, and T waves are within normal limits, T waves and intervals are normal, no ischemic changes. This is a normal EKG Course/Dx - Course Course Of Treatment: A 27 year-old F presents to the ED with a CC of of altered mental status since 2209hrs on 12/01/2017. As per EMS, the pt was found with an unknown substance. She arrives in handcuffs and is not communicative. A physical exam revealed that the pupils are normal and reactive; Not pinpoint. The patient makes eye contact but is not verbal; She is fidgety with smirking present. An EKG is unremarkable. In the ED course, pt was given N.s 0.9% 2000ml IV, Haloperidol 10mg IV and Ketamine 300mg IV which improved the symptoms. Patient will be discharged with a final Dx of substance abuse. Pt is agreeable with this plan. Allergies noted. - Diagnoses Provider Diagnoses: Substance abuse Discharge - Sign-Out/Discharge Documenting (check all that apply): Patient Departure - DC - Discharge Plan Condition: Good Disposition: HOME Patient Education Materials: Methamphetamine Abuse (ED), Opioid Use Disorder ( ED) Referrals: Romina Villalba NP [Primary Care Provider] - Additional Instructions: Return to ED for any new or worsening symptoms - Billing Disposition and Condition Condition: GOOD Disposition: Home - Attestation Statements Document Initiated by Rumaibe: Yes Documenting Scribe: Piper Zuluaga Provider For Whom Aaron is Documenting (Include Credential): Dr. Andre Guerrier MD Scribe Attestation: Piper Mchugh , scribed for Dr. Andre Guerrier MD on 12/03/17 at 1404. Scribe Documentation Reviewed: Yes Provider Attestation: The documentation as recorded by the Piper martinez accurately reflects the service I personally performed and the decisions made by me, Dr. Andre Guerrier MD
[2017-12-02 04:20] VITALS: BP 111/73
== END 2017-12-02 04:21 | disposition home or self-care (01) ==
LOC: ED 22:54
DX: F19.10 Other psychoactive substance abuse, uncomplicated (principal); F17.210 Nicotine dependence, cigarettes, uncomplicated
CPT/HCPCS: 36415; 80053; 80320; 83605; 85025; 93005; 96372; 99285; G0480

== ENCOUNTER 2018-03-12 11:52 | Emergency (ER) | payer OTHER ==
[2018-03-12 15:10] VITALS: BP 112/60
--- NOTE | 2018-03-12 15:39 | UC ---
Complaint Female HPI - HPI Summary HPI Summary: 27-year-old woman comes in with a chief complaint of urinary urgency frequency and dysuria for 1 month. Denies any flank pain. She does have some suprapubic pain with urination. No fevers or chills. Patient reports that she was treated with Bactrim initially which did not work and that was treated with Macrobid and that also did not work. Treatment occurred in [place] therefore we don't have access to any of those records at this time. Patient also reports about a week and half of vaginal discharge with an which reminds her bacterial vaginitis. She denies any concern of an STI. - History Of Current Complaint Chief Complaint: UCGU Stated Complaint: URINARY Time Seen by Provider: 03/12/18 15:08 Hx Last Menstrual Period: 02/22/17 Pain Intensity: 0 - Allergies/Home Medications Allergies/Adverse Reactions: Allergies Allergy/AdvReac Type Severity Reaction Status Date / Time cefaclor [From Ceclor] Allergy Itching Verified 05/30/17 16:18 Home Medications: Home Medications Pumpkin Seed Extract/Soy Germ [Azo Bladder Control Capsule] 300 mg PO DAILY 02/27 [History Confirmed 03/12/18] PMH/Surg Hx/FS Hx/Imm Hx Previously Healthy: Yes - Surgical History Surgical History: Yes Surgery Procedure, Year, and Place: PYLORIC STENOSIS - Family History Known Family History: Negative: Cardiac Disease, Hypertension - Social History Alcohol Use: None Substance Use Type: None Substance Use Comment - Amount & Last Used: methamphetamines Smoking Status (MU): Light Every Day Tobacco Smoker Type: Cigarettes Amount Used/How Often: 3-4 CIG/DAY Length of Time of Smoking/Using Tobacco: since age 19 Household Exposure Type: Cigarettes Review of Systems All Other Systems Reviewed And Are Negative: Yes Constitutional: Positive: Negative Skin: Positive: Negative Eyes: Positive: Negative ENT: Positive: Negative Respiratory: Positive: Negative Cardiovascular: Positive: Negative Gastrointestinal: Positive: Negative Genitourinary: Positive: Dysuria, Frequency, Urgency, Vaginal/Penile Discharge Motor: Positive: Negative Neurovascular: Positive: Negative Musculoskeletal: Positive: Negative Neurological: Positive: Negative Psychological: Positive: Negative Is Patient Immunocompromised?: No Physical Exam Triage Information Reviewed: Yes Appearance: Well-Appearing, No Pain Distress, Well-Nourished Vital Signs: Initial Vital Signs Temp 97.8 F 03/12/18 15:06 Pulse 78 03/12/18 15:06 Resp 18 03/12/18 15:06 BP 112/60 03/12/18 15:06 Pulse Ox 99 03/12/18 15:06 Vital Signs Reviewed: Yes Eye Exam: Normal Eyes: Positive: Conjunctiva Clear Neck exam: Normal Neck: Positive: Supple Respiratory: Positive: Lungs clear, Normal breath sounds, No respiratory distress Cardiovascular: Positive: RRR Abdomen Description: Positive: Nontender, Soft Bowel Sounds: Positive: Present Musculoskeletal Exam: Normal Musculoskeletal: Positive: Strength Intact, ROM Intact Neurological Exam: Normal Neurological: Positive: Alert, Muscle Tone Normal Psychological Exam: Normal Psychological: Positive: Age Appropriate Behavior Skin Exam: Normal Complaint Female Dx - Course Course Of Treatment: Discussed treatment with the patient. With the patient reporting that the infection did not improve with either Bactrim or Macrobid and her being allergic to Ceclor and reporting that she can take amoxicillin, I will treat with Augmentin. We discussed having a pelvic exam to further evaluate for STI's are other causes of her vaginitis and symptoms. At this time the patient prefers to be treated empirically. The plan is if she does not improve or if she worsens she will get reevaluated. - Differential Dx/Diagnosis Provider Diagnosis: UTI (urinary tract infection), Vaginitis Discharge - Sign-Out/Discharge Documenting (check all that apply): Patient Departure All imaging exams completed and their final reports reviewed: No Studies - Discharge Plan Condition: Stable Disposition: HOME Prescriptions: Amoxicillin/Clavulanate TAB* [Augmentin TAB 875*] 875 mg PO BID #14 tab Fluconazole 150 MG TAB* [Diflucan 150 MG TAB*] 150 mg PO ONCE #2 tablet metroNIDAZOLE [Flagyl] 500 mg PO BID #14 tablet Patient Education Materials: Bacterial Vaginosis (ED), Urinary Tract Infection in Women (ED), Vaginitis (ED) Referrals: Romina Villalba NP [Primary Care Provider] - [facility] REFERRAL [Outside] Additional Instructions: FOLLOW UP WITH YOUR DOCTOR. GET RECHECKED SOONER WITH ANY WORSENING OF YOUR CONDITION; PAIN, FEVER, YOU FEEL ILL, YOUR SYMPTOMS DO NOT IMPROVE OR QUESTIONS OR CONCERNS. - Billing Disposition and Condition Condition: STABLE Disposition: Home
--- NOTE | 2018-03-15 07:02 | UC ---
- Progress Note Progress Note: please notify pt ask about symptoms if better continue antibiotic if unchanged or worse let me know and we can send in different Rx Course/Dx - Diagnoses Provider Diagnoses: UTI (urinary tract infection), Vaginitis Discharge - Sign-Out/Discharge Documenting (check all that apply): Post-Discharge Follow Up All imaging exams completed and their final reports reviewed: No Studies - Discharge Plan Condition: Stable Disposition: HOME Prescriptions: Amoxicillin/Clavulanate TAB* [Augmentin TAB 875*] 875 mg PO BID #14 tab Fluconazole 150 MG TAB* [Diflucan 150 MG TAB*] 150 mg PO ONCE #2 tablet metroNIDAZOLE [Flagyl] 500 mg PO BID #14 tablet Patient Education Materials: Bacterial Vaginosis (ED), Urinary Tract Infection in Women (ED), Vaginitis (ED) Referrals: [facility] [facility] [place]Outside] Romina Villalba NP [Primary Care Provider] - Additional Instructions: FOLLOW UP WITH YOUR DOCTOR. GET RECHECKED SOONER WITH ANY WORSENING OF YOUR CONDITION; PAIN, FEVER, YOU FEEL ILL, YOUR SYMPTOMS DO NOT IMPROVE OR QUESTIONS OR CONCERNS. - Billing Disposition and Condition Condition: STABLE Disposition: Home
== END 2018-03-12 15:44 | disposition home or self-care (01) ==
LOC: UCCORT 11:52
DX: N39.0 Urinary tract infection, site not specified (principal); N76.0 Acute vaginitis; F17.210 Nicotine dependence, cigarettes, uncomplicated; Z88.1 Allergy status to other antibiotic agents
CPT/HCPCS: 81003; 84702; 87077; 87086; 87186; 99212; G0463

== ENCOUNTER 2018-09-06 13:36 | Emergency (ER) | payer OTHER ==
[2018-09-06 14:25] VITALS: BP 105/67
--- NOTE | 2018-09-06 14:50 | UC ---
Throat Pain/Nasal Quentin HPI - HPI Summary HPI Summary: 27-year-old female presents with 3 day history of sore throat. Associated with some mild nasal congestion and low-grade fever. Denies ear pain, dysphagia, cough, difficulty breathing, chest pain, abdominal pain, nausea, vomiting, or diarrhea. Also note, patient reports that she was recently discharged from inpatient drug rehabilitation but is return to using. She was seen at the [facility] ER 4 days ago and she took her Suboxone shortly after using heroin and went into withdrawal. She states that they prescribed her Subutex but she has not taken. She last used heroin yesterday. She has an appointment at [facility] scheduled for next week. - History of Current Complaint Chief Complaint: UCGeneralIllness Stated Complaint: SORE THROAT Time Seen by Provider: 09/06/18 14:20 Hx Obtained From: Patient Hx Last Menstrual Period: 02/22/17 Pain Intensity: 9 - Allergies/Home Medications Allergies/Adverse Reactions: Allergies Allergy/AdvReac Type Severity Reaction Status Date / Time cefaclor [From [facility]] Allergy Itching Verified 09/06/18 14:16 Home Medications: Home Medications Buprenorphine TAB* [Subutex TAB*] 8 mg SL DAILY 09/06/18 [History Confirmed ] Ibuprofen TAB* [Advil TAB*] 400 mg PO Q6H PRN 09/06/18 [History Confirmed ] PMH/Surg Hx/FS Hx/Imm Hx Previously Healthy: Yes - Denies significant PMH - Surgical History Surgical History: Yes Surgery Procedure, Year, and Place: PYLORIC STENOSIS - Family History Known Family History: Positive: Non-Contributory - Social History Occupation: Unemployed Lives: With Family Alcohol Use: Rare Substance Use Type: Heroin Substance Use Comment - Amount & Last Used: methamphetamines Smoking Status (MU): Light Every Day Tobacco Smoker Type: Cigarettes Amount Used/How Often: 3-4 CIG/DAY Length of Time of Smoking/Using Tobacco: since age 19 Household Exposure Type: Cigarettes Review of Systems All Other Systems Reviewed And Are Negative: Yes Constitutional: Positive: Fever, Chills, Fatigue Skin: Negative: Rash Eyes: Negative: Drainage, Eye Redness ENT: Positive: Sore Throat, Nasal Discharge, Sinus Congestion. Negative: Ear Ache, Sinus Pain/Tenderness Respiratory: Negative: Shortness Of Breath, Cough Cardiovascular: Negative: Palpitations, Chest Pain Gastrointestinal: Negative: Abdominal Pain, Vomiting, Diarrhea, Nausea Genitourinary: Positive: Negative Musculoskeletal: Positive: Negative Neurological: Positive: Negative Physical Exam - Summary Physical Exam Summary: GENERAL APPEARANCE: Well developed, well nourished, alert and cooperative, and appears to be in no acute distress. EYES: Conjunctiva clear. No drainage. EARS: External auditory canals and tympanic membranes clear, hearing grossly intact. NOSE: No nasal discharge. THROAT: Pharyngeal erythema. 3+ tonsils with exudate. Uvula midline. NECK: Neck supple. Mild tenderness with anterior cervical lymphadenopathy. CARDIAC: Normal S1 and S2. No S3, S4 or murmurs. Rhythm is regular. There is no peripheral edema, cyanosis or pallor. Extremities are warm and well perfused. Capillary refill is less than 2 seconds. Peripheral pulses intact. LUNGS: Clear to auscultation without rales, rhonchi, wheezing or diminished breath sounds. ABDOMEN: Positive bowel sounds. Soft, nondistended, nontender. No guarding or rebound. No masses or hepatosplenomegally. MUSKULOSKELETAL: ROM intact to all extremities. No joint erythema or tenderness. Normal muscular development. Normal gait. SKIN: Skin normal color, texture and turgor with no lesions or eruptions. Triage Information Reviewed: Yes Vital Signs: Initial Vital Signs Temp 99.5 F 09/06/18 14:17 Pulse 92 09/06/18 14:17 Resp 20 09/06/18 14:17 BP 105/67 09/06/18 14:17 Pulse Ox 100 09/06/18 14:17 Vital Signs Reviewed: Yes Throat Pain/Nasal Course/Dx - Course Course Of Treatment: 27-year-old female presents with 3 day history of sore throat. Associated with some mild nasal congestion and low-grade fever. Denies ear pain, dysphagia, cough, difficulty breathing, chest pain, abdominal pain, nausea, vomiting, or diarrhea. Also note, patient reports that she was recently discharged from inpatient drug rehabilitation but is return to using. She was seen at the [facility] ER 4 days ago and she took her Suboxone shortly after using heroin and went into withdrawal. She states that they prescribed her Subutex but she has not taken. She last used heroin yesterday. She has an appointment at [facility] scheduled for next week. Afebrile. Vital signs stable. Patient had pharyngeal erythema, 3+ tonsils with exudate, tender anterior cervical lymphadenopathy, otherwise unremarkable exam. Rapid strep test was negative. Recommending symptomatic treatment for a viral pharyngitis. I have encouraged the patient to contact [facility] to see if they could get her in earlier this week for reevaluation. Anticipatory guidance and warning symptoms were reviewed with the patient. Verbalizes understanding and agrees with plan of care. - Differential Dx/Diagnosis Differential Diagnosis/HQI/PQRI: Mononucleosis, Pharyngitis, Tonsillitis, URI Provider Diagnosis: Acute viral pharyngitis Discharge - Sign-Out/Discharge Documenting (check all that apply): Patient Departure All imaging exams completed and their final reports reviewed: No Studies - Discharge Plan Condition: Stable Disposition: HOME Patient Education Materials: Pharyngitis (ED) Referrals: No Primary Care Phys,NOPCP [Primary Care Provider] - [facility],. [[employer], APPLICATION, OTHER] - 2 Days Additional Instructions: Your rapid strep test in the clinic today was negative. Your symptoms are likely from a viral infection. Viral infections do not respond to antibiotics and are limited to the treatment of symptoms. Viral infections typically run their course in 7-10 days. Drink plenty of fluids to avoid dehydration especially if you are running any fever. Use salt water gargles several times a day. Take over the counter acetaminophen (Tylenol) or ibuprofen (Advil, Motrin) according to directions as needed for pain or fever. You may also use Chloraseptic spray or Cepacol lonzenges according to directions which contain a numbing medication and can provide some temporary relief from your sore throat. Rollow up at [facility] within w days for recheck of symptoms. Call for an appointment. Seek immediate medical attention in the emergency room if you have fever greater than 100.5 F despite taking acetaminophen or ibuprofen, are unable to swallow or develop drooling, are unable to open your mouth fully, are unable to eat or drink, have pain that is not relieved with over the counter pain medication, or have any difficulty breathing. - Billing Disposition and Condition Condition: STABLE Disposition: Home
== END 2018-09-06 15:06 | disposition home or self-care (01) ==
LOC: UCCORT 13:36
DX: J02.8 Acute pharyngitis due to other specified organisms (principal); Z91.14 Patient's other noncompliance with medication regimen; F11.90 Opioid use, unspecified, uncomplicated; F17.210 Nicotine dependence, cigarettes, uncomplicated
CPT/HCPCS: 87651; 99211; G0463

== ENCOUNTER 2019-06-08 11:55 | Emergency (ER) | payer OTHER ==
[2019-06-08 12:53] VITALS: BP 100/61
== END 2019-06-08 13:27 | disposition home or self-care (01) ==
LOC: UCCORT 11:55